=== PATIENT | female | born 1960 | race Caucasian/White ===

== ENCOUNTER → 2017-09-09 | Outpatient (CLI) | payer OTHER ==
[~2017-09-09] MED LIST: DICY10CA11 PO; ESTR0.5T16 PO; LEVO50TA86 PO; LOSA25TA50 PO; MEDR2.5T34 PO; PRAV20TA66 PO; SPIR50TA30 PO
--- NOTE | 2017-09-09 11:29 | RADIOLOGY IMAGING REPORT ---
FACILITY: [facility] PATIENT NAME: Eloisa Garcia : 1960 MR: [id number] V: [id number] EXAM DATE: ORDERING PHYSICIAN: SHIRIN SILVA TECHNOLOGIST[place] [facility] [place]oisa [place] : 1960 Visit/Account:[id number] Date of Sevice: 09/09/2017 GALLBLADDER HISTORY: Right upper quadrant epigastric pain off and on for a couple of months COMPARISON: The 2006 FINDINGS: Gallbladder: Unremarkable; no stones or sludge. Liver: Negative. Common duct: Normal, 4.7 mm diameter. Pancreas: Partially obscured by bowel, visualized aspects unremarkable. Right kidney: Right kidney appears unremarkable measuring 10.8 cm in length. Resistive index is 0.55 Upper abdominal aorta and IVC: Patent. Ascites: None visualized. IMPRESSION: Unremarkable right upper quadrant ultrasound Report Dictated By: Lizy Quevedo MD at 09/09/2017 11:22 AM Report E-Signed By: Lizy Quevedo MD at 09/09/2017 11:24 AM WSN:[id number]
== END ==
LOC: US 07:20
PROVIDERS: ATTEND Nurse Practitioner Family
DX: R10.13 Epigastric pain (principal); R10.9 Unspecified abdominal pain
CPT/HCPCS: 76705

== ENCOUNTER → 2018-02-17 | Outpatient (CLI) | payer OTHER ==
--- NOTE | 2018-02-21 08:30 | RADIOLOGY IMAGING REPORT ---
FACILITY: [facility] PATIENT NAME: ALANA SABILLON : [id number] MR: [id number] V: [id number] EXAM DATE: ORDERING PHYSICIAN: SHIRIN SILVA TECHNOLOGIST: Milana Minaya PROCEDURE:BILATERAL DIGITAL SCREENING MAMMOGRAM WITH CAD ASSISTED INTERPRETATION & 3D TOMOSYNTHESIS COMPARISON:None. INDICATIONS:SCREENING FINDINGS: Breast parenchyma is heterogeneously dense. There are no mammographic findings concerning for malignancy. No significant change from priors. DIAGNOSTIC CATEGORY 1--NEGATIVE. RECOMMENDATIONS: ROUTINE MAMMOGRAM AND CLINICAL EVALUATION IN 1 YR. IMPRESSION: BIRADS 1: Negative. Dictated by: Dereje Fischer on 02/18/2018 at 10:05 Transcribed by: PATT on 02/18/2018 at 10:34 Approved by: Dayne Lugo M.D. on 02/21/2018 at 8:29 [facility]
== END ==
LOC: MAMO 01:01
PROVIDERS: ATTEND Nurse Practitioner Family
DX: Z12.31 Encounter for screening mammogram for malignant neoplasm of breast (principal)
CPT/HCPCS: 77063; 77067

== ENCOUNTER → 2018-03-09 | Outpatient (CLI) | payer OTHER ==
[~2018-03-09] MED LIST changes: -LOSA25TA50 PO; +LOSA25TA52 PO
--- NOTE | 2018-03-09 11:37 | RADIOLOGY IMAGING REPORT ---
FACILITY: [facility] PATIENT NAME: Eloisa Garcia : 1960 MR: [id number] V: [id number] EXAM DATE: ORDERING PHYSICIAN: SHIRIN SILVA TECHNOLOGIST: Location: [facility] [place] Patient: Eloisa Garcia : 1960 Visit/Account:[id number] Date of Sevice: 03/09/2018 DEXA Scan Clinical history: Postmenopausal. Comparison: None available. LUMBAR SPINE: The bone mineral density (BMD) measured from L1-L4 correlates with a Z-score -0.4 and a T-score of -1 .4 which is osteopenia as defined by the World Health Organization. The corresponding risk of fractu re in the lumbar spine is to 3 times increased compared with a young adult reference population. HIP: Bone mineral density (BMD) measured in the Left total hip region correlates with a Z-score -0.6 and a T-score of -1.4 which is osteopenia as defined by the World Health Organization. The corresponding risk of fracture in the hip is 2-3 times increased compared with a young adult reference population. T score left femoral neck -2.2 Bone mineral density (BMD) measured in the Femoral Neck region measures 0.730 g/cm2. Impression: 1. Lumbar spine: Osteopenia. 2. Left Hip: Osteopenia. 3. Femoral Neck: Bone Mineral Density is 0.730 g/cm2 The next DEXA scan of this patient should include the following sites: L1-L4 and the left hip. FRAX? WHO Fracture Risk Assessment Tool link: <http://www.shef.ac.uk/FRAX/tool.jsp?locationValue=9> PLEASE NOTE: 1) The World Health Organization defines low BMD as follows: T-score Normal > -1 Osteopenia < -1 and > -2.5 Osteoporosis < -2.5 without fractures Established osteoporosis < -2.5 with fractures 2) In general, you may wish to consider: Diagnosis Treatment Follow-up DEXA Normal BMD Prevention 2-3 years Osteopenia Prevention/therapy 1-2 years Osteoporosis Therapy Yearly 3) Fracture risk estimated from the T-score is more accurate for vertebral fractures (often spontane ous) than for hip fractures. Report Dictated By: Lizy Quevedo MD at 03/09/2018 11:32 AM Report E-Signed By: Lizy Quevedo MD at 03/09/2018 11:33 AM WSN:MYRNA
== END ==
LOC: RAD 01:16
PROVIDERS: ATTEND Nurse Practitioner Family
DX: M85.80 Other specified disorders of bone density and structure, unspecified site (principal)
CPT/HCPCS: 77080